=== PATIENT | female | born 1970 | race Caucasian/White ===

== ENCOUNTER 2016-11-28 07:18 | Emergency (ER) | payer MEDICARE, OTHER ==
--- NOTE | ~2016-11-28 | US140 ---
[facility] A Service of [facility] / [facility] RADIOLOGY TEXT RESULTS PATIENT: MITCHELL YU LOCATION: [facility] : 72 UNIT #: [id number] AGE: [address]: Yunior Munoz MD SEX: F ORDER DR: [id number] [facility] [address] [place], [place] [address] [id number] E MR#: [id number] Acc #: [id number] NAME: MITCHELL YU : 1970 SEX: F STUDY DATE/TIME: 11/28/2016 8:43 UNIT: [facility] ROOM: STUDY DESCRIPTION: [facility] [place] [employer] Attending Physician: Yunior Munoz M.D. Ordering Physician: Yunior Munoz M.D. MEDICAL IMAGING REPORT This report is preliminary unless electronic signature is present EXAM Venous Doppler ultrasound, right arm, 11/28/2016. HISTORY 46-year-old female in the ED complaining of 1-day history of right arm pain. TECHNIQUE Venous ultrasound examination of the right upper extremity was performed using grayscale, spectral Doppler and color flow Doppler imaging. FINDINGS The examination is negative. There is no evidence of deep venous thrombus within the right internal jugular vein, subclavian vein, axillary vein or brachial veins. No superficial venous thrombus is seen within the cephalic or basilic veins. IMPRESSION Negative examination. No evidence of right upper extremity venous thrombosis. Dictated by... Tamir Nelson M.D. THIS IS AN ELECTRONICALLY VERIFIED REPORT Tamir Nelson M.D. at 11/28/2016 3:06 PM CARMELITA/riaz TD: 11/28/2016 14:17 JOB #: [id number] [facility] A Service [facility] RADIOLOGY TEXT RESULTS PATIENT: MITCHELL YU LOCATION: [facility] : 72 UNIT #: [id number] AGE: [address]: Yunior Munoz MD SEX: F ORDER DR: MEDICAL IMAGING REPORT COPY
[~2016-11-28 07:18] MED LIST: CIPRO PO; PYRIDIUM PO; VICODIN 5/1 TAB 5/50 PO; ZOFRAN PO
== END 2016-11-28 09:25 | disposition home or self-care (01) ==
LOC: CED 07:18
DX: M79.631 Pain in right forearm (principal); I10 Essential (primary) hypertension; Z90.49 Acquired absence of other specified parts of digestive tract; Z90.710 Acquired absence of both cervix and uterus; Z88.2 Allergy status to sulfonamides; Z88.8 Allergy status to other drugs, medicaments and biological substances
CPT/HCPCS: 36415; 85379; 93971; 99284